=== PATIENT | female | born 1995 ===

== ENCOUNTER → 2017-08-25 | Outpatient (CLI) | payer BC ==
[2017-08-28 22:11] LABS: CHLAMYDIA TRACHOMATIS, NAA Negative (Negative); NEISSERIA GONORRHOEAE, NAA Negative (Negative)
== END | disposition home or self-care (01) ==
LOC: LAB SHORT 15:15 → LAB 15:15
PROVIDERS: Nurse Practitioner Family
DX: Z11.3 Encounter for screening for infections with a predominantly sexual mode of transmission (principal)
CPT/HCPCS: 87491; 87591